=== PATIENT | female | born 1965 | race Caucasian/White ===

== ENCOUNTER 2020-08-28 11:15 | Emergency (ER) | payer BC, SELFPAY ==
[2020-08-28 11:15] VITALS: BP 124/79; PULSE 64; RESP 20; TEMP 36.7; O2SAT 100; BMI 21.9
[2020-08-28 11:40] VITALS: BP 124/79; PULSE 64; RESP 20; TEMP 36.7; O2SAT 100
--- NOTE | 2020-08-28 11:41 | HMH.EDUTC ---
[facility] [place] Clinical Impression: Encounter for laboratory testing for COVID-19 virus Disposition: Home, Self-Care Condition on Discharge: Good Instructions: DI for COVID-19 (Suspected or Confirmed ), Coronavirus Disease 2019, Preventing the Spread of Coronavirus Discharge Instructions Additional Instructions: *Monitor Temp, Over the counter Motrin or Tylenol as directed/as needed Tylenol every 4 hours and Motrin every 6 hours (as long as your family doctor has told you that you can take it) for fever or pain. and straight to ER if unable to lower temp less than 101.0 after medication given Follow up IMMEDIATELY for new or worsening symptoms or no Noticeable improvement over the next 48-72 hours. 911 for difficulty breathing or swallowing You were tested for today for COVID19 your test result should be back in the next 24-48 hours, you may call to the [facility] to see if your test results are back in the next 48 hours [phone] [facility] hours are 9am-9pm You was given a handout with instructions for Self Quarantine and Self isolation for while you wait on test results and what to do if they are positive If you are positive the Health Dept will be contacting you also Referrals: Rangel Mercedes [Primary Care Provider] - As needed Forms: Work/School Release Time of Disposition: 11:45 Medical Decision Making - Zeferino Inquiry Pt receiving controlled substance: No Zeferino was queried for this patient: No Vital Signs: 08/28/20 11:15 08/28/20 11:40 Temperature 98.1 F 98.1 F Temperature Source Oral Pulse Rate 64 Pulse Rate [Right Brachial] 64 Respiratory Rate 20 20 Blood Pressure 124/79 Blood Pressure [Right Arm] 124/79 Blood Pressure Mean [Right Arm] 94 Blood Pressure Source [Right Arm] Automatic Cuff Blood Pressure Position [Right Arm] Sitting 02 Sat by Pulse Oximetry 100 Oxygen Delivery Method Room Air Orders (Tests/Meds): ORDERS Category Date Time Status Covid-19 Nasal PCR ([facility]) Routine Lab 08/28/20 11:30 [place] [facility] [place] - General Stated complaint: wants covid test Time Seen by Provider: 08/28/20 11:41 Mode of Arrival: Ambulatory Source of Information: Patient Limitations: No Limitations Description of Symptoms (Recalled from Triage Doc. by RN): PT REQUESTING COVID TEST. DENIES SYMPTOMS OR EXPOSURE HEENT Symptoms (Recalled from RN notes): No Resp Symptoms (Recalled from RN notes): No Skin Symptoms (Recalled from RN notes): No MS Symptoms (Recalled from RN notes): No Functional Status (Recalled from RN notes): WNL - History of Present Illness Provider Complaint: Patient states that she is wanting to get tested for COVID State that her has been having COVID like symptoms and she wanted to get tested State that she is not having any symptoms yet but still was concerned - Worker's Comp Is this a Worker's Comp case?: No H History - Hepatitis A Screen Drug use history?: No High risk sexual behaviors?: No History of sexually transmitted infection?: No Currently employed?: No Childcare worker?: No Do you have indoor plumbing?: Yes Do you have electricity?: Yes Attestation statement:: This patient has been screened for Hepatitis A risk factors. I have reviewed the patient's past medical history: Yes ROS Obtained: Yes All systems reviewed & no additional complaints, Yes Systems reviewed as appropriate & no additional complaints - Constitutional Constitutional: Reports system reviewed and no additional complaints, except as docu, Denies body ache, Denies chills, Denies fever(s), Denies headache(s) - ENT Ears, Nose, Mouth, and Throat: Reports system reviewed and no additional complaints, except as docu, Denies sore throat - Cardiovascular Cardiovascular: Reports system reviewed and no additional complaints, except as docu - Respiratory Respiratory: Reports system reviewed and no additional complaints, except as docu - Gastrointestinal Gastrointestingal: Reports: syst
== END 2020-08-28 11:58 | disposition home or self-care (01) ==
PROVIDERS: Emergency Provider Nurse Practitioner; PCP Internal Medicine
DX: Z20.822 Contact with and (suspected) exposure to COVID-19 (principal)
CPT/HCPCS: 99202; G0463; U0003

== ENCOUNTER 2024-07-03 09:56 | Outpatient (CLI) | payer BC, SELFPAY ==
[2024-07-06 16:30] LABS: Pancreatic Elastase, Fecal 761 (>200)
== END 2024-07-03 23:59 | disposition home or self-care (01) ==
LOC: LAB 09:57
PROVIDERS: PCP Internal Medicine; Visit Provider Internal Medicine Gastroenterology
DX: R11.0 Nausea (principal); R14.0 Abdominal distension (gaseous); R19.5 Other fecal abnormalities
CPT/HCPCS: 82656

== ENCOUNTER 2024-07-23 07:34 | Outpatient (CLI) | payer BC, SELFPAY ==
--- NOTE | 2024-07-23 07:35 | CT_ITS ---
FINAL REPORT TECHNIQUE: Axial CT of the abdomen and pelvis, without and with IV contrast. This study was performed with techniques to keep radiation doses as low as reasonably achievable, (ALARA). Individualized dose reduction techniques using automated exposure control or adjustment of mA and/or kV according to the patient's size were employed. CLINICAL HISTORY: Nausea, abdominal pain and weight loss COMPARISON: None FINDINGS: Abdomen: Lung bases are clear. Multiple hepatic cysts are present. The spleen, pancreas and adrenal glands are unremarkable. Precontrast imaging shows no renal stone disease. Postcontrast imaging of the kidneys shows no mass or obstruction. No bowel obstruction or fluid collection is seen. Mild fecal impaction is noted diffusely in the colon. The mesenteric vessels appear unremarkable. Pelvis: The appendix is not visualized. Pelvic bowel loops are unremarkable. No fluid collection or adenopathy is seen. The uterus is retroverted. The bladder is normal in appearance. IMPRESSION: No acute findings. Reviewed, Interpreted and Dictated by Adriano Bhatt MD Transcribed by Alejandra Perez Authenticated and [facility]
[2024-07-23 08:02] LABS: Blood Urea Nitrogen 6 mg/dl (7-17); Estimated Glomerular Filt Rate 103 ml/min (>60); GFR (African American) 125 ML/MIN (>60)
[2024-07-23] MEDS: IOPAMIDOL-370 (76%);100ML BOTTLE 75 ML IV (08:32)
[2024-07-23] MEDS: SODIUM CHLORIDE 0.9% 10ML SYR (RAD ONLY) 10 ML IV (08:32)
== END 2024-07-23 23:59 | disposition home or self-care (01) ==
LOC: RAD 07:35
PROVIDERS: PCP Internal Medicine; Visit Provider Internal Medicine Gastroenterology
DX: R11.0 Nausea (principal); R10.9 Unspecified abdominal pain; R63.4 Abnormal weight loss; Z68.24 Body mass index [BMI] 24.0-24.9, adult
CPT/HCPCS: 36415; 74178; 82565; 84520; Q9967

== ENCOUNTER 2024-09-07 11:00 | Day surgery (SDC) | payer BC, SELFPAY ==
[2024-09-04 08:47] VITALS: BMI 25.0
[2024-09-07 11:42] VITALS: BP 126/77; PULSE 58; RESP 16; TEMP 36.6; O2SAT 100
--- NOTE | 2024-09-07 11:59 | EXP.ANES.CKL ---
[facility] Disclaimer: The information contained in this section may have been updated after the patient was seen, as this information can be updated by other users. Medical History (Updated 09/04/24 @ 08:37 by Judith Lynch RN) Normal colonoscopy Breast implant status Surgical History (Updated 09/04/24 @ 08:37 by Judith Lynch RN) Hx of tonsillectomy Hx of appendectomy Family History (Updated 09/04/24 @ 08:39 by Judith Lynch RN) Other Acute diverticulitis of intestine COPD (chronic obstructive pulmonary disease) History of colon resection Lymphoma Prostate cancer Social History (Updated 09/07/24 @ 11:34 by Cuca Mccracken RN) Smoking Status: Never smoker alcohol intake: never substance use type: denies use current occupational status: employed Travel in the last 8 weeks: Inside the [place] [facility] Anesthesia Checklist Patient Identification Patient Identification: Arm Band Structural Data Admitted From: Home Planned Operative Procedure/s: Colonoscopy Consent for Planned Operative Procedure(s) Verified: Yes Verified Documents: Surgical Consent and History and Physical NPO Status Verified Time NPO: 08:30 (finished prep) Additional verifications Anesthesia Reactions: No Airway Assessment Mallampati Score:: Class II C-Spine Mobility Assessed: Yes TMJ Mobility Assessed: Yes Dentition: Good Dentition Neurological Assessment Level of Consciousness: Awake, Alert and Appropriate Anesthesia Plan Anesthesia Risk discussed: Yes Anesthesia Plan: Verified ASA Class: I Anesthesia Type: MAC
[2024-09-07] MEDS: LACTATED RINGERS 1000ML 1,000 ML 50 ML IV (12:04)
--- NOTE | 2024-09-07 12:33 | EXP.HP ---
History of Present Illness *Admission Date: 09/07/24 *Reason for visit:: Frequent internal hemorrhoidal bleeding and prolapsing internal hemorrhoids *History of present illness: Mrs. Beltrán is a 59-year-old female who is here for sigmoidoscopy with possible hemorrhoid band ligation. She does have frequent hemorrhoidal bleeding and prolapsing internal hemorrhoids. The examination is deemed medically necessary for sigmoidoscopy with banding. The patient has been seen, interviewed and examined prior to the procedure by both myself and the anesthesia provider. [facility] Disclaimer: The information contained in this section may have been updated after the patient was seen, as this information can be updated by other users. Medical History (Updated 09/04/24 @ 08:37 by Judith Lynch RN) Normal colonoscopy Breast implant status Surgical History (Updated 09/04/24 @ 08:37 by Judiht Lynch RN) Hx of tonsillectomy Hx of appendectomy Family History (Updated 09/04/24 @ 08:39 by Judith Lynch RN) Other Acute diverticulitis of intestine COPD (chronic obstructive pulmonary disease) History of colon resection Lymphoma Prostate cancer Social History (Updated 09/07/24 @ 12:00 by Christos Holland CRNA) Smoking Status: Never smoker alcohol intake: never substance use type: denies use current occupational status: employed Travel in the last 8 weeks: Inside the [place] Have you lived/traveled outside US in past 30 days?: No Contact w/someone who lives/traveled outside US past 30 days?: No Exposure to someone with infectious disease in past 14 days?: No Do you have a fever (greater than 100.4 F or 38 C)?: No Have you tested positive for COVID-19: No Exposed to someone with COVID-19 in past 14 days?: No Do you have a sore throat?: No Do you have a cough?: No Do you have any weakness?: No Do you have any diarrhea?: No Are you experiencing any unusual bleeding?: No Do you have any muscle aches/pain?: No Do you have any abdominal pain?: No Are you experiencing loss of taste or smell?: No Review of Systems Review of Systems Review of systems (narrative): Negative *Cardiovascular Comments: Negative *Gastrointestinal Comments: Negative *Genitourinary Comments: Negative *Musculoskeletal Comments: Negative *Neurologic Comments: Negative Meds Home Medications and Allergies Home Medications ?Medication ?Instructions ?Recorded ?Confirmed ?Type multivitamin (Multiple Vitamins 1 tab PO DAILY 06/30/24 09/07/24 History tablet) psyllium husk (with sugar) 3 1 tbsp PO DAILY 06/30/24 09/07/24 History gram/12 gram oral powder (Konsyl (sugar)) segvlk-[id number]-snechkj 1 cap PO .With meals 30 days #90 07/21/24 09/07/24 Rx 36,000-114,000-180,000 unit caps capsule,delay rel (Creon) sodium,potassium,mag sulfates 17.5 See Rx Instructions PO .COMPLEX 08/27/24 09/07/24 Rx gram-3.13 gram-1.6 gram oral soln #354 mL (Suprep Bowel Prep Kit) estradiol 0.01% (0.1 mg/gram) See Rx Instructions .Route .COMPLEX 09/04/24 09/07/24 History vaginal cream New Prescriptions to Start Prescriptions: Allergies Allergy/AdvReac Type Severity Reaction Status Date / Time No Known Allergies Allergy Verified 09/07/24 11:34 Exam Data for Last 24 hours Vital signs and Labs for Last 24 Hours: Temp Pulse Resp BP Pulse Ox O2 Del Method 97.9 F 58 L 16 126/77 100 Room Air 09/07/24 11:42 09/07/24 11:42 09/07/24 11:42 09/07/24 11:42 09/07/24 11:42 09/07/24 11:42 I & O for Last 24 hours: Intake & Output 09/04/24 09/05/24 09/06/24 09/07/24 23:59 23:59 23:59 23:59 Weight 160 lb *Routine HEENT Exam Head: Present normocephalic Eye: Present EOMI and PERRL ENT: Present mucous membranes moist *Routine Neck Exam Neck: Present supple *Routine Respiratory Exam Respiratory: Present CTA bilaterally *Routine Cardiovascular Exam Cardiovascular: Present RRR *Routine Abdominal Exam Abdominal: Present soft and normoactive bowel sounds; Absent tenderness *Routine Rectal Exam Rectal:: deferred *Routine Genitalia Exam Genitalia:: deferred *Routine Extremities Exam Extremities: Absent cyanosis, clubbing or edema *Routine Skin Exam Skin: Present warm; Absent rash *Routine Neurological Exam Neurological: Present alert and oriented X3 Assessment and Plan *Assessment and plan (1) Bleeding internal hemorrhoids: Status: Acute Category: Medical Code(s): K64.8 - Other hemorrhoids (2) Prolapsed internal hemorrhoids: Status: Acute Category: Medical Code(s): K64.8 - Other hemorrhoids Plan A/P: 1. Bleeding and prolapsing internal hemorrhoids is the preprocedural diagnosis. The patient will be anesthetized/sedated using MAC sedation. The patient has been seen and examined. Cardiac and lung assessment prior to the examination is stable. Proceed with planned flexible sigmoidoscopy with possible hemorrhoid band ligation
[2024-09-07 12:45] VITALS: O2SAT 100
--- NOTE | 2024-09-07 12:50 | HMH.PROCNOTE ---
[facility] Procedure Note Date: 09/07/24 Time: 13:03 Procedure Note:: Flexible Sigmoidoscopy Procedure Report: Sigmoidoscopy with hemorrhoid band ligation Endoscopist: Guero Becker II, MD Referring physician: Felice Mercedes MD Date of Procedure: September 07, 2024 Equipment: Olympus 180 upper endoscope Sedation: MAC sedation Indication: Mrs. Prieto is a 59-year-old female who is here for diagnostic/therapeutic sigmoidoscopy. She also gets some abdominal pain occasionally in the left lower quadrant and epigastrium. The patient reports some gassiness and bloating. She reports loose bowel movements and takes Konsyl/psyllium daily. She has had more frequent hemorrhoidal bleeding which is bright red blood and hemorrhoid prolapse. She has had several bouts since December 2023. She had a colonoscopy with me in June 2021 that showed pandiverticulosis with evidence of resolved sigmoid diverticulitis. She had grade 1-2 internal hemorrhoids. The patient did have a CAT scan of the abdomen and pelvis in March 2021 that showed no acute intra-abdominal process with some colonic diverticulosis and small liver cyst. At the time her gallbladder and pancreas were normal. She did see Dr. Neeru Rivera?gynecology. She reports no family history of pancreatic cancer. She does eat primarily meats and does state that green vegetables especially because her symptoms (i.e. spinach, broccoli, celery, etc.). Procedure: Prior to the procedure, a history and physical exam was performed, and patient's medications and allergies were reviewed. The risks, benefits and alternatives of the sedation and procedure were discussed with the patient. All questions were answered and informed consent was obtained. The patient was brought to the procedure room. Patient identification and proposed procedure were verified by the physician and the nurse. The patient was placed in a left lateral decubitus position and the scope was passed under direct vision. Throughout the procedure, the patient's blood pressure, pulse, and oxygen saturations were monitored continuously. The colonoscopy was accomplished without difficulty. The patient tolerated the procedure well. Findings: On digital rectal examination there was normal rectal tone. There were no external hemorrhoids. The scope was then inserted through the anal canal into the rectum and advanced to 50 cm. There was evidence of sigmoid diverticulosis. Within the rectum, the endoscope was retroflexed and there were grade 2 internal hemorrhoids with some evidence of rectal and hemorrhoidal prolapse. 3 columns of internal hemorrhoids were banded using 3 bands with excellent ligation effect. Impression: 1. Grade 2 internal hemorrhoids with both hemorrhoid and rectal prolapse status post band ligation x 3 2. Sigmoid diverticulosis Plan: I would resume psyllium Konsyl daily. I will discuss the findings with the patient and family.
[2024-09-07 13:08] VITALS: BP 86/55; PULSE 66; RESP 18; TEMP 36.4; O2SAT 96
[2024-09-07] MEDS: HYDROCODONE/APAP 5/325 MG TABLET 1 TAB PO (13:16)
[2024-09-07 13:18] VITALS: BP 114/71; PULSE 79; RESP 18; O2SAT 97
[2024-09-07 13:28] VITALS: BP 121/73; PULSE 64; RESP 18; O2SAT 98
[2024-09-07 14:00] VITALS: BP 120/74; PULSE 63; RESP 18; O2SAT 97
== END 2024-09-07 14:00 | disposition home or self-care (01) ==
PROVIDERS: PCP Internal Medicine; Visit Provider Internal Medicine Gastroenterology
PROC: 0DJD8ZZ Inspection of Lower Intestinal Tract, Via Natural or Artificial Opening Endoscopic (ICD-10-PCS; CPT 45330; principal; 2024-09-07 12:30)
DX: K64.8 Other hemorrhoids (principal); K59.4 Anal spasm; Z98.890 Other specified postprocedural states; K57.30 Diverticulosis of large intestine without perforation or abscess without bleeding; K64.1 Second degree hemorrhoids
CPT/HCPCS: 45350; C1889; J7120

== ENCOUNTER 2025-01-13 13:59 | Emergency (ER) | payer BC, SELFPAY ==
--- NOTE | 2025-01-13 14:11 | XR_ITS ---
FINAL REPORT TECHNIQUE: Chest PA & Lateral CLINICAL HISTORY: rib pain COMPARISON: None FINDINGS: 2 views of the chest were performed. The heart size is normal. The mediastinum is within normal limits. There is no acute cardiopulmonary process. There are no pleural effusions. There is no pneumothorax. The bony thorax appears intact. IMPRESSION: No acute cardiopulmonary process. Reviewed, Interpreted and Dictated by Lucian Holder MD Transcribed by Alejandra Perez Authenticated and [facility]
--- OUTSIDE RECORDS SUMMARY | 2025-01-13 14:12 | XMS_ITS | Continuity of Care Document ---
Author Organization [facility] Address [address] [place] [address] Care Team Providers Care Flower Maker Name Role Phone WILLOW RAMOS Primary Care Provider Assessment No assessment recorded. Plan of Treatment Reminders Order Date Submit Date Provider Last Modified By Organization Details Last Modified Time Details Appointments FOLLOW UP [facility] 2025 09:10A M JULIET DESAI MD Not available Not available Not available Lab None recorded. Referral None recorded. Procedures None recorded. Surgeries None recorded. Imaging None recorded. Medication Orders prednison e 10 mg tablet [address] [facility] [address] [place] [address], [address] [place] [address], [id number], 12/21/2024 15:11:46 triamcino lone acetonide 0.1 % topical cream [address] [facility] [address] [place] [address] RX, [address] [place] [address], [id number], 12/21/2024 15:11:46 Patient TargetsNo targets recorded. Patient InstructionsNo instructions recorded. Reason for Referral None Reported. Medical Equipment None Reported. Allergies No known drug allergies Medications Name Sig Start Date Stop Date Status Note LastModified by Organization Details LastModified Time prednisone 10 mg tablet Take 4 tablets PO QAM x4 days, 3 tablets PO QAM x4 days, 2 tablets PO QAM x4 days, 1 tablet PO QAM x4 days 2024 active Not Available Not Available Not Avai lable ketoconazole 2 % shampoo APPLY TO THE AFFECTED AREA(S), LATHER, LEAVE IN PLACE FOR 5 MINUTES, AND THEN RINSE OFF WITH WATER BY TOPICAL ROUTE ONCE DAILY 2024 active Not Available Not Available Not Avai lable triamcinolone acetonide 0.1 % topical cream Apply to the affected area BID x2 weeks, then 1-2 times weekly. Not for face, armpits, or groin. 2024 active Not Available Not Available Not Avai lable Vitals None Recorded Social History None recorded. Functional Status None recorded. Mental Status None recorded. Family History Nothing Reported. Medical History No medical history recorded. Gynecological HistoryNo gynecological history recorded. Obstetrics History GPAL:G 0 P 0 0 0 0 Past Encounters Encounter ID Performer Location Encounter Start Date Encounter Closed Date Diagnosis/Indication Diagnosis SNOMED-CT Code Diagnosis ICD10 Code Diagnosis Note [id number] SANTY PENA PA-C [address] [address] 12/21/2024 13:08:39 12/21/2024 15:13:24 Allergic contact dermatitis caused by plant material [id number] L23.7 Pt notes possible exposure to poison hesham.Pt taking rx methylpred nisolone and cephalexin 500 TID x7 days prescribed by PCP. She notes she just finished the few days of steroid and didn't notice much change. Rec finish out Keflex and will send longer prednisone taper.Will send TAC 0.1% ointmentWi ll send prednisone taper Health Concerns Section Related Observation LastModified by Organization Detai ls LastModified Time None Recorded Concern Status LastModified by Organization Details LastModified Time None Recorded Payers Encounter Date Sequence Insurance Name Policy Number Policy Rebolledo Covered Member ID Rebolledo Member ID Guarantor Name 12/21/2024 1 [facility] (PPO) [id number] Bravo Prieto [id number] Bravo Prieto Notes Date Note Type Note Provider Name and Address Organization Details Recorded Time 12/21/2024 text/html Rash Location(s): arms, groin, legs General duration: ~daysstarted 12/13 Predominant symptom:itching Prior treatment(s): methylprednisol one, cephalexin, calamine lotion Recently, the rash seems to be:minimally changed SANTY PENA PA-C [address] [place], [address], [facility] 12/29/2024 10:22:16 OBGyn Episode No OBEpisode recorded.
--- OUTSIDE RECORDS SUMMARY | 2025-01-13 14:12 | XMS_ITS | Clinical Summary ---
Author Organization [facility] Address [address] [place] [id number] Phone [email or web address] Care Team Providers Care Parallel Computing Software Engineer Name Role Phone Provider, No Primary Care Provider Unavailabl e Allergies No known active allergies Medications Nidia-D Allergy & Congestion 180-240 MG per 24 hr tablet Take 1 tablet by mouth 1 (one) time each day. 01/20/2021 Active ibuprofen (MOTRIN) 800 MG tablet 03/05/2022 Active acetaminophen (TYLENOL 8 HOUR) 650 MG 8 hr tablet Take 650 mg by mouth every 8 (eight) hours if needed for mild pain. Do not crush, chew, or split. Active Active Problems Problem Noted Date Diagnosed Date Open wound of finger 11/16/2011 Overview (01/01/2018): Immunizations Immunization Administration Dates Next Due Covid-19 (Modern[employer] [place], 12yrs+) (CVX-207) 2020,10/04/2020 Social History Tobacco Use Types Packs/Day Years Used Date Smoking Tobacco: Never Smokeless Tobacco: Never Intimate Partner Violence Answer Date R ecorded Insults You Not on file 11/16/2020 Threatens You Not on file 11/16/2020 Screams at You Not on file 11/16/2020 Physically Hurt Not on file 11/16/2020 Intimate Partner Violence Score Not on file 11/16/2020 Depression Answer Date Recorded PHQ Total Score 0 09/11/2024 Stress Answer Date Recorded Stress in your Life Not on file 06/08/2024 Dealing with Stress 3 06/08/2024 Comments Unknown Sex and Gender Information Value Date Recorded Sex Assigned at Not on file Legal Sex Female 10:29 AM CDT Gender Identity Not on file Sexual Orientation Not on file Last Filed Vital Signs Vital Sign Reading Time Taken Comments Blood Pressure 142/83 09/11/2024 9:30 AM EST Pulse 65 09/11/2024 9:30 AM EST Temperature 36.8 C (98.2 F) 07/11/2023 3:04 PM EST Respiratory Rate 16 09/11/2024 9:30 AM EST Oxygen Saturation 98% 09/11/2024 9:30 AM EST Inhaled Oxygen Concentration - - Weight 71.2 kg (157 lb) 02/13/2023 5:38 PM EDT Height 170.2 cm (5' 7 ) 02/13/2023 5:38 PM EDT Body Mass Index 24.59 02/13/2023 5:38 PM EDT Plan of Treatment Health Maintenance Due Date Last Done Comments Dental Cleaning/Exam 1967 HIV Screening 1967 Hepatitis C Screening 1967 Cervical Cancer Screening 1983 Annual Preventive Exam 1985 Hep B Infection Screening - Triple Screen 1985 Hepatitis B Immunization (1 of 3 - 19+ 3-dose series) 1986 Tetanus Diphtheria and Pertussis Immunization (1 - Tdap) 1986 Colorectal Cancer Screening 1997 Covid-19 Immunization ( season) 2024 03/10/2022, 06/16/2021, 11/01/2020, Additional history exists Influenza Immunization (Season Ended) 2025 06/02/2022, 05/21/2020 Breast Cancer Screening 09/30/2026 09/30/19, 08/19/2023, 08/17/2022, Additional history exists Zoster Immunization Completed 08/02/2022, HIB Immunization Aged Out No longer e ligible based on patient's age to complete this topic HPV Immunization Aged Out No longer e ligible based on patient's age to complete this topic Hepatitis A Immunization Aged Out No longer eligible based on patient's age to complete this topic Pneumococcal: Ped (0 to 5 Yrs) and At-Risk Member (6 to 64 Yrs) Aged Out No longer eligible based on patient's age to complete this topic Polio Immunization Aged Out No longer eligible based on patient's age to complete this topic Insurance OPT OUT NO COPAY NB Care Teams Parallel Computing Software Engineer Relationship Specialty Start Date End Date Provider, BAILEE Franco [id number] PCP - General Hot Header Operator 01/30/21
[2025-01-13 14:18] VITALS: BP 166/105; PULSE 97; RESP 17; TEMP 37; O2SAT 99; BMI 22.2
--- NOTE | 2025-01-13 14:19 | ECG_ITS ---
APPROVED REPORT Exam: Resting ECG HR:77 bpm ECG Measurements Heart Rate 77 AXES AK 142 P 72 QRSd 92 QRS 14 QT 393 T 66 QTc 425 Conclusion SINUS RHYTHM LOW QRS VOLTAGE IN PRECORDIAL LEADS [QRS DEFLECTION < 1.0 mV IN CHEST LEADS] BORDERLINE ECG UNCONFIRMED REPORT Electronically signed by : Rito Ren MD 01/14/2025 08:43:19
--- NOTE | 2025-01-13 14:22 | ED_ITS ---
Discharge Plan Disposition Patient Disposition: Home, Self-Care Prescriptions Prescriptions: New epinephrine [EpiPen 2-Marlon] 0.3 mg/0.3 mL auto-injector 0.3 mg IM Q15M PRN (Reason: anaphylaxis) Qty: 1 0RF Rx Instructions: for 3 doses fexofenadine 30 mg tablet,disintegrating 180 mg PO BID Qty: 360 0RF famotidine 40 mg tablet 40 mg PO DAILY Qty: 30 0RF No Action multivitamin [Multiple Vitamins] Tablet 1 tab PO DAILY Konsyl (sugar) 3 gram/12 gram powder 1 tbsp PO DAILY Creon 36,000-114,000- 180,000 unit capsule,delayed release(DR/EC) 1 cap PO .With meals 30 Days Qty: 90 2RF Rx Instructions: administer with meals and/or snacks sodium,potassium,mag sulfates [Suprep Bowel Prep Kit] 17.5-3.13-1.6 gram recon soln See Rx Instructions PO .COMPLEX Qty: 354 0RF Rx Instructions: DILUTE; drink full amount early evening before AND next morning at least 4-5 hr before procedure; follow w 960 mL water PO estradiol 0.01 % (0.1 mg/gram) cream See Rx Instructions .ROUTE .COMPLEX Patient Comments: INSERT 1 GRAM VAGINALLY THREE TIMES A WEEK ON SATURDAY, SATURDAY AND SATURDAY Rx Instructions: place cream in vaginally once weekly hydrocodone-acetaminophen 5-325 mg tablet 1 tab PO Q8H PRN (Reason: Anorectal spasm) Qty: 10 0RF Rx Instructions: Please take 1 tablet p.o. every 8 hours anorectal pain/spasm after hemorrhoid banding Referrals Follow up/Referrals: veterinary technician instructor [Other] - See instructions Brianna Pitts MD [Referring, Otolaryngology (ENT)] - See instructions Provider,Referral, [Referring, Medical] - See instructions Activity Restrictions/Add. Instructions Additional Instructions/Restrictions: Increase fluids and rest. Take allergy medicine, famotidine and Benadryl as directed. Also please make appointment with Dr. Hankins she is an veterinary technician instructor and can help you with all the allergy problems you are having. I also prescribed an EpiPen just in case you start to feel throat closing and problems breathing you can use that immediately. Return to the ER for any worsening symptoms or problems. Clinical Impressions Clinical Impression: Allergic reaction, Angioedema Instructions Patient Instructions: DI for General Allergic Reactions Print Language Print Language: Lithuanian Discharge ED Provider: Laura Spencer General Adult HPI <Elaine Krause (ED), [employer] - Last Filed: 01/13/25 16:05> General Chief complaint: Allergic Reaction Stated complaint: Allergic Reaction Time Seen by Provider: 01/13/25 14:11 History of Present Illness HPI narrative: This is a 59-year-old female who presents to the ED today for complaint of allergic reaction. Her bottom lip is swollen. She has had many symptoms that have come and gone over the past couple weeks. The lip swelling has been going on for couple days. Patient saw Dr. Clancy on 12/11/2024 for poison hesham. She was given steroids and steroid cream and a shot. She then saw her immigration guard who gave more steroids. She just stopped them last . She says that she has been getting hives that have been diffuse on her body. She says they only last about a day and then they will resolve. She states that 2 days ago she had a knot in her throat and by the evening her throat was swollen, nose was swollen and she felt like she was unable to breathe. She says she took Mucinex and tried to calm herself down. She says she improved. She says she got up and went to work this morning but she had a sore throat. She says she thought she might of a sinus infection but she went to work today. She says her ear started swelling the left side of her face started swelling and her lip started to swell. She says now at this point her ear swelling is gone her left face is no longer swollen but her lip continues to swell but it is improved since this morning. She says that she started to feel shortness of breath at work but she feels like this was more anxiousness than anything. She has no shortness of breath now. She says she came to the ER because of her throat feeling like it closed up. This made her extremely nervous so she wanted to come in and be evaluated. She tells me that she has no idea what she is allergic to. She says that she has had no new medications. No new lotions, soaps or detergents. She tells me that she is not on no other medications that are new. Other than the steroids over the last month she has had no other new medications but she had stopped those on . No fevers or chills. No nausea, vomiting or diarrhea. No other symptoms. Related Data Home Medications ?Medication ?Instructions ?Recorded ?Confirmed multivitamin (Multiple Vitamins 1 tab PO DAILY 4 09/07/24 tablet) psyllium husk (with sugar) 3 1 tbsp PO DAILY 06/30/24 09/07/24 gram/12 gram oral powder (Konsyl (sugar)) estradiol 0.01% (0.1 mg/gram) See Rx Instructions .Rou te .COMPLEX 09/04/24 09/07/24 vaginal cream Previous Rx's ?Medication ?Instructions ?Recorded jipjei-[id number] 1 cap PO .With meals 30 days #90 07/21/24 36,000-114,000-180,000 unit caps capsule,delay rel (Creon) sodium,potassium,mag sulfates 17.5 See Rx Instructions PO .COMPLEX 08/27/24 gram-3.13 gram-1.6 gram oral soln #354 mL (Suprep Bowel Prep Kit) hydrocodone 5 mg-acetaminophen 325 1 tab PO Q8H PRN An orectal spasm 09/07/24 mg tablet #10 tabs epinephrine 0.3 mg/0.3 mL 0.3 mg (0.3 mL) IM Q15M PRN 01/13/25 injection, auto-injector (EpiPen anaphylaxis #1 ea 2-Marlon) famotidine 40 mg tablet 40 mg PO DAILY #30 tabs 01/03 08/29 fexofenadine 30 mg disintegrating 180 mg (6 x 30 mg) P O BID #360 tabs 01/13/25 tablet Allergies Allergy/AdvReac Type Severity Reaction Status Date / Time No Known Allergies Allergy Verified 09/07/24 11:34 [facility] <Elaine Krause (ED), [employer] - Last Filed: 01/13/25 16:05> [facility] Disclaimer: The information contained in this section may have been updated after the patient was seen, as this information can be updated by other users. Medical History (Updated 01/13/25 @ 15:56 by Elaine Krause (ED), [employer]) Normal colonoscopy Breast implant status Surgical History (Updated 09/07/24 @ 13:56 by Guero Becker II, MD) Hx of tonsillectomy Hx of appendectomy Family History (Updated 09/04/24 @ 08:39 by Judith Lynch RN) Other Acute diverticulitis of intestine COPD (chronic obstructive pulmonary disease) History of colon resection Lymphoma Prostate cancer Social History (Updated 09/07/24 @ 12:00 by Christos Holland CRNA) Smoking Status: Never smoker alcohol intake: never substance use type: denies use current occupational status: employed Travel in the last 8 weeks?: Inside the [place] Have you lived/traveled outside [place] in past 30 days?: No Contact w/someone who lives/traveled outside US past 30 days?: No Exposure to someone with infectious disease in past 14 days?: No Do you have a fever (greater than 100.4 F or 38 C)?: No Have you tested positive for COVID-19?: No Exposed to someone with COVID-19 in past 14 days?: No Do you have a sore throat?: No Do you have a cough?: No Do you have any weakness?: No Do you have any diarrhea?: No Are you experiencing any unusual bleeding?: No Do you have any muscle aches/pain?: No Do you have any abdominal pain?: No Are you experiencing loss of taste or smell?: No <Elaine Krause (ED), [employer] - Last Filed: 01/13/25 16:05> ROS Obtained: Yes Systems reviewed as appropriate & no additional complaints except as documented Constitutional Constitutional: Reports as per HPI Physical Exam <Elaine Krause (ED), [employer] - Last Filed: 01/13/25 16:05> General General appearance: alert and anxious Head Head exam: normocephalic Eye Eye exam: Present PERRL and EOMI ENT ENT exam: Present mucous membranes moist and other (Lower lip swollen) Neck Neck exam: Present full ROM and trachea midline Respiratory Respiratory exam: Present normal lung sounds bilaterally Cardiovascular Cardiovascular exam: Present regular rate, normal rhythm, normal heart sounds, +S1 and +S2 Abdominal Exam Abdominal exam: Present soft and normal bowel sounds Extremities Exam Extremities exam: Present normal inspection, full ROM and normal capillary refill Neurological Exam Neurological exam: Present alert, oriented X3 and normal gait Skin Skin exam: Present warm, dry and intact Medical Decision Making <Elaine Krause (ED), [employer] - Last Filed: 01/13/25 16:05> Medical Records Screening: Per USPSTF and CDC recommendations, given the prevalence of disease in our region, it is our hospital?s policy to screen for HIV and viral Hepatitis for all patients aged 18 and over and those with ongoing risk factors. Zeferino Inquiry Pt receiving controlled substance: No Zeferino was queried for this patient: No Vital Signs: 01/13/25 14:18 01/13/25 14:53 01/13/25 14:54 Temperature 98.6 F Temperature Source Oral Pulse Rate 75 68 Pulse Rate [Right] 97 H Respiratory Rate 17 16 9 L Blood Pressure 139/92 H 139/92 H Blood Pressure [Right Arm] 166/105 H Blood Pressure Mean [Right Arm] 125 02 Sat by Pulse Oximetry 99 100 100 Oxygen Delivery Method Room Air Room Air 01/13/25 15:00 01/13/25 15:30 01/13/25 16:12 Temperature 98.6 F Temperature Source Pulse Rate 75 64 84 Pulse Rate [Right] Respiratory Rate 18 15 16 Blood Pressure 152/100 H 141/85 H 140/85 Blood Pressure [Right Arm] Blood Pressure Mean [Right Arm] 02 Sat by Pulse Oximetry 99 100 Oxygen Delivery Method Room Air Lab Data Lab Results 01/13/25 14:08: WBC 5.4, RBC 4.42, Hgb 13.4, Hct 41.0, MCV 92.8, MCH 30.3, MCHC 32.7, RDW 13.2, Plt Count 269, MPV 9.5, Neut % (Auto) 55.9, Lymph % (Auto) 32.1, Fannin % (Auto) 9.9 H, Eos % (Auto) 1.5, Baso % (Auto) 0.4, Neut # (Auto) 3.0, Lymph # (Auto) 1.7, Fannin # (Auto) 0.5, Eos # (Auto) 0.1, Baso # (Auto) 0.0, S odium 134 L, Potassium 4.0, Chloride 102, Carbon Dioxide 28, Anion Gap 8.0, BUN 11, Creatinine 0.70, Estimated Creat Clear 90, Estimated GFR 86, Est GFR ( Amer) 104, Glucose 91, Calcium 9.3, Magnesium 2.0, Total Bilirubin 0.8, AST 37 H, ALT 21, Alkaline Phosphatase 69, Total Protein 7.6, Albumin 4.8, Globulin 2.8, Albumin/Globulin Ratio 1.7 01/13/25 14:08 01/13/25 14:08 Orders (Tests/Meds): ED MEDICATIONS Discontinued Medications Generic Name Dose Route Start Last Admin Trade Name Freq PRN Reason Stop Dose Admin Diphenhydramine HCl 25 mg 01/13/25 14:11 01/13/25 14:33 Diphenhydramine 50mg/Ml Vial IV 01/13/25 14:12 25 mg ONCE ONE Administration Famotidine 20 mg 01/13/25 14:11 01/13/25 14:33 Famotidine 20mg/2ml Vial IV 01/13/25 14:12 20 mg ONCE ONE Administration Methylprednisolone Sodium Succinate 125 mg 01/13/25 14:11 01/13/25 14:33 Methylprednisolone Sod Succ 125mg Vial IV 01/13/25 14:12 125 mg ONCE ONE Administration Sodium Chloride 8 ml 01/13/25 14:11 01/13/25 14:33 Sodium Chloride 0.9% 10ml Vial IV 02/12/25 14:10 8 ml NEEDED PRN Administration dilute pepcid ORDERS Category Date Time Status Chest XR 2 view (NOT portable) [XR chest 2V] Stat Exams 01/13/25 14:11 Completed CBC [Complete Blood Count Auto Diff] Stat Lab 01/13/25 14:08 Completed Comprehensive Metabolic Panel Stat Lab 01/13/25 14:08 Completed Magnesium Stat Lab 01/13/25 14:08 Completed HEART Score History (anamnesis): Slightly suspicious ECG: Normal Age: 45-65 years Risk factors: 1-2 risk factors Troponin: </= normal limit HEART Score: 2 Medical Decision Narrative: patient is a 59-year-old female presenting to the emergency department for evaluation of swollen lower lip, possible allergic reaction. Patient is hemodynamically stable and nontoxic-appearing upon arrival, afebrile. Differential diagnosis includes allergic reaction, angioedema, among others. Workup will be conducted with hematologic labs, specific imaging. Initial inventions include famotidine, Benadryl and Solu-Medrol. Initial workup reviewed by me labs were essentially unremarkable. Imaging informally interpreted by me and remarkable for nothing acute. Formal imaging read remarkable for:] Upon repeat evaluation patient's pain is improved, appears better perfused. Discussed with Dr. Spencer about her symptoms and we both agreed to do not do steroids since she just got off of them on but we are going to prescribe allergy med, EpiPen just in case and have her follow-up with an veterinary technician instructor. <Laura Spencer, DO - Last Filed: 01/13/25 17:51> Vital Signs: 01/13/25 14:18 01/13/25 14:53 01/13/25 14:54 Temperature 98.6 F Temperature Source Oral Pulse Rate 75 68 Pulse Rate [Right] 97 H Respiratory Rate 17 16 9 L Blood Pressure 139/92 H 139/92 H Blood Pressure [Right Arm] 166/105 H Blood Pressure Mean [Right Arm] 125 02 Sat by Pulse Oximetry 99 100 100 Oxygen Delivery Method Room Air Room Air 01/13/25 15:00 01/13/25 15:30 01/13/25 16:12 Temperature 98.6 F Temperature Source Pulse Rate 75 64 84 Pulse Rate [Right] Respiratory Rate 18 15 16 Blood Pressure 152/100 H 141/85 H 140/85 Blood Pressure [Right Arm] Blood Pressure Mean [Right Arm] 02 Sat by Pulse Oximetry 99 100 Oxygen Delivery Method Room Air Lab Data Lab Results 01/13/25 14:08: WBC 5.4, RBC 4.42, Hgb 13.4, Hct 41.0, MCV 92.8, MCH 30.3, MCHC 32.7, RDW 13.2, Plt Count 269, MPV 9.5, Neut % (Auto) 55.9, Lymph % (Auto) 32.1, Fannin % (Auto) 9.9 H, Eos % (Auto) 1.5, Baso % (Auto) 0.4, Neut # (Auto) 3.0, Lymph # (Auto) 1.7, Fannin # (Auto) 0.5, Eos # (Auto) 0.1, Baso # (Auto) 0.0, S odium 134 L, Potassium 4.0, Chloride 102, Carbon Dioxide 28, Anion Gap 8.0, BUN 11, Creatinine 0.70, Estimated Creat Clear 90, Estimated GFR 86, Est GFR ( Amer) 104, Glucose 91, Calcium 9.3, Magnesium 2.0, Total Bilirubin 0.8, AST 37 H, ALT 21, Alkaline Phosphatase 69, Total Protein 7.6, Albumin 4.8, Globulin 2.8, Albumin/Globulin Ratio 1.7 Orders (Tests/Meds): ED MEDICATIONS Discontinued Medications Generic Name Dose Route Start Last Admin Trade Name Uvaldoq PRN Reason Stop Dose Admin Diphenhydramine HCl 25 mg 01/13/25 14:11 01/13/25 14:33 Diphenhydramine 50mg/Ml Vial IV 01/13/25 14:12 25 mg ONCE ONE Administration Famotidine 20 mg 01/13/25 14:11 01/13/25 14:33 Famotidine 20mg/2ml Vial IV 01/13/25 14:12 20 mg ONCE ONE Administration Methylprednisolone Sodium Succinate 125 mg 01/13/25 14:11 01/13/25 14:33 Methylprednisolone Sod Succ 125mg Vial IV 01/13/25 14:12 125 mg ONCE ONE Administration Sodium Chloride 8 ml 01/13/25 14:11 01/13/25 14:33 Sodium Chloride 0.9% 10ml Vial IV 02/12/25 14:10 8 ml NEEDED PRN Administration dilute pepcid ORDERS Category Date Time Status Chest XR 2 view (NOT portable) [XR chest 2V] Stat Exams 01/13/25 14:11 Completed CBC [Complete Blood Count Auto Diff] Stat Lab 01/13/25 14:08 Completed Comprehensive Metabolic Panel Stat Lab 01/13/25 14:08 Completed Magnesium Stat Lab 01/13/25 14:08 Completed HEART Score HEART Score: 2 Medical Decision Narrative: patient is a 59-year-old female presenting to the emergency department for evaluation of swollen lower lip, possible allergic reaction. Patient is hemodynamically stable and nontoxic-appearing upon arrival, afebrile. Differential diagnosis includes allergic reaction, angioedema, among others. Workup will be conducted with hematologic labs, specific imaging. Initial inventions include famotidine, Benadryl and Solu-Medrol. Initial workup reviewed by me labs were essentially unremarkable. Imaging informally interpreted by me and remarkable for nothing acute. Upon repeat evaluation patient's pain is improved, appears better perfused. Discussed with Dr. Spencer about her symptoms and we both agreed to do not do steroids since she just got off of them on but we are going to prescribe allergy med, EpiPen just in case and have her follow-up with an veterinary technician instructor. DO Tj: I was consulted by the EMERITA, and we discussed the complexity of the problems being addressed. I approved the treatment and management plan for this patient's care in the emergency department, thus performing a substantive portion of the medical decision making. Laura Spencer DO Critical Care <Elaine Krause (ED), [employer] - Last Filed: 01/13/25 16:05> Critical Care Time Critical Care Time: No
[2025-01-13 14:28] LABS: Basophils % 0.4 % (0.1-2.0); Eosinophils # 0.1 Kmm3 (0.0-0.4); Eosinophils % 1.5 % (0.1-12.0); Hemoglobin 13.4 g/dL (12.2-16.2); Immature Granulocytes # 0.01 10^3uL; Immature Granulocytes % 0.2 %; Lymphocytes # 1.7 K/mm3 (0.7-4.5); Lymphocytes % 32.1 % (10-50); Mean Corpuscular HGB Conc 32.7 g/dL (31.8-35.4); Mean Corpuscular Hemoglobin 30.3 pg (27.0-31.2); Mean Corpuscular Volume 92.8 fl (81-99); Mean Platelet Volume 9.5 fl (7.4-10.4); Monocytes # 0.5 K/mm3 (0.1-1.0); Monocytes % 9.9 % (1.7-9.3); Neutrophils % 55.9 % (37.0-80.0); Nucleated Red Blood Cells # 0 10^3/uL; Nucleated Red Blood Cells % 0 %; Platelet Count 269 K/mm3 (142-424); Red Blood Count 4.42 M/mm3 (4.20-5.40); Red Cell Distribution Width 13.2 % (11.5-17.5); Red Cell Distribution Width-SD 45.2 fL; White Blood Count 5.4 K/mm3 (4.8-10.8)
[2025-01-13] MEDS: SODIUM CHLORIDE 0.9% 10ML VIAL 8 ML IV (14:33)
[2025-01-13] MEDS: diphenhydrAMINE 50MG/ML VIAL 25 MG IV (14:33)
[2025-01-13] MEDS: FAMOTIDINE 20MG/2ML VIAL 20 MG IV (14:33)
[2025-01-13] MEDS: METHYLPREDNISOLONE SOD SUCC 125MG VIAL 125 MG IV (14:33)
[2025-01-13 14:35] LABS: Chloride 102 mmol/L (98-107)
[2025-01-13 14:36] LABS: Albumin Level 4.8 g/dl (3.5-5.0); Sodium 134 mmol/L (136-145)
[2025-01-13 14:38] LABS: Alanine Aminotransferase 21 U/L (12-78); Albumin/Globulin Ratio 1.7 (1.1-1.8); Alkaline Phosphatase 69 U/L (38-126); Aspartate Amino Transferase 37 U/L (14-36); Bilirubin,Total 0.8 mg/dl (0.2-1.3); Blood Urea Nitrogen 11 mg/dl (7-17); Carbon Dioxide 28 mmol/L (22.0-30.0); Creatinine Clearance Estimated 90 mL/min (50-200); Estimated Glomerular Filt Rate 86 ml/min (>60); GFR (African American) 104 ML/MIN (>60); Globulin 2.8 g/dL (1.3-3.2); Total Protein,Serum 7.6 g/dl (6.3-8.2)
[2025-01-13 14:39] LABS: Calcium 9.3 mg/dl (8.4-10.2); Glucose 91 mg/dl (74-100)
[2025-01-13 14:53] VITALS: BP 139/92; PULSE 75; RESP 16; O2SAT 100
[2025-01-13 14:54] VITALS: BP 139/92; PULSE 68; RESP 9; O2SAT 100
[2025-01-13 15:00] VITALS: BP 152/100; PULSE 75; RESP 18; O2SAT 99
--- NOTE | 2025-01-13 15:01 | PC.NURSE ---
Pt has had breast implants since 2013.
[2025-01-13 15:30] VITALS: BP 141/85; PULSE 64; RESP 15; O2SAT 100
[2025-01-13 16:12] VITALS: BP 140/85; PULSE 84; RESP 16; TEMP 37; O2SAT 99
== END 2025-01-13 16:13 | disposition home or self-care (01) ==
PROVIDERS: Nurse Practitioner; Emergency Provider Emergency Medicine; PCP Internal Medicine
DX: T78.3XXA Angioneurotic edema, initial encounter (principal); T78.40XA Allergy, unspecified, initial encounter
CPT/HCPCS: 71046; 80053; 83735; 85025; 93005; 96374; 96375; 99284; J1200; J2919

== ENCOUNTER 2025-05-20 04:05 | Emergency (ER) | payer BC, SELFPAY ==
[2025-05-20] MEDS: METHYLPREDNISOLONE SOD SUCC 125MG VIAL 125 MG IV (04:18)
[2025-05-20] MEDS: FAMOTIDINE 20MG/2ML VIAL 20 MG IV (04:19)
[2025-05-20 04:30] VITALS: BP 131/85; PULSE 62; O2SAT 97
[2025-05-20 04:33] VITALS: BP 165/94; PULSE 74; RESP 16; TEMP 36.7; O2SAT 100; BMI 21.7
[2025-05-20 05:00] VITALS: BP 131/75; PULSE 69; O2SAT 98
--- NOTE | 2025-05-20 05:26 | HMH.EDGENADL ---
Discharge Plan Disposition Patient Disposition: Home, Self-Care Condition: Good Prescriptions Prescriptions: New epinephrine [EpiPen 2-Marlon] 0.3 mg/0.3 mL auto-injector 0.3 mg IM Q15M PRN (Reason: anaphylaxis) Qty: 2 0RF Rx Instructions: for 2 doses prednisone 20 mg tablet 40 mg PO DAILY 4 Days Qty: 8 0RF No Action multivitamin [Multiple Vitamins] Tablet 1 tab PO DAILY Konsyl (sugar) 3 gram/12 gram powder 1 tbsp PO DAILY Creon 36,000-114,000- 180,000 unit capsule,delayed release(DR/EC) 1 cap PO .With meals 30 Days Qty: 90 2RF Rx Instructions: administer with meals and/or snacks sodium,potassium,mag sulfates [Suprep Bowel Prep Kit] 17.5-3.13-1.6 gram recon soln See Rx Instructions PO .COMPLEX Qty: 354 0RF Rx Instructions: DILUTE; drink full amount early evening before AND next morning at least 4-5 hr before procedure; follow w 960 mL water PO estradiol 0.01 % (0.1 mg/gram) cream See Rx Instructions .ROUTE .COMPLEX Patient Comments: INSERT 1 GRAM VAGINALLY THREE TIMES A WEEK ON SATURDAY, SATURDAY AND SATURDAY Rx Instructions: place cream in vaginally once weekly hydrocodone-acetaminophen 5-325 mg tablet 1 tab PO Q8H PRN (Reason: Anorectal spasm) Qty: 10 0RF Rx Instructions: Please take 1 tablet p.o. every 8 hours anorectal pain/spasm after hemorrhoid banding epinephrine [EpiPen 2-Marlon] 0.3 mg/0.3 mL auto-injector 0.3 mg IM Q15M PRN (Reason: anaphylaxis) Qty: 1 0RF Rx Instructions: for 3 doses fexofenadine 30 mg tablet,disintegrating 180 mg PO BID Qty: 360 0RF famotidine 40 mg tablet 40 mg PO DAILY Qty: 30 0RF Referrals Follow up/Referrals: Provider,Referral, MD [Primary Care Provider, Medical] - See instructions Activity Restrictions/Add. Instructions Additional Instructions/Restrictions: You were evaluated in the ER and are believed to be appropriate for discharge at this time. 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 Take them as directed. Use the EpiPen if needed for severe allergic reaction including anaphylaxis or tongue swelling, difficulty breathing, etc. Make an appointment with your primary care doctor for reevaluation in 1 to 2 days. Please request a referral to an correctional officer sergeant for follow-up and allergy testing. Continue taking your antihistamine at home such as Nidia, Zyrtec, or Xyzal. Return to the ER with any new, worsening, or otherwise concerning symptoms including return of the symptoms that brought you in tonight, or if you have to use your EpiPen. Clinical Impressions Clinical Impression: Angioedema Print Language Print Language: Pashto Discharge ED Provider: Erika Daniel General Adult HPI General Chief complaint: Allergic Reaction Stated complaint: Allergic Reaction Time Seen by Provider: 05/20/25 04:13 Mode of Arrival: Ambulatory Source of Information: Patient Description of Symptoms (Recalled from ER Triage Doc. by RN): Pt states she woke up feeling like she could not breathe, her tongue was swelling. Pt has had 3 similiar episodes since January. She administered Epi pen into leg and took 25mg benadryl. Pt is unaware of what has caused her angioedema. History of Present Illness HPI narrative: 60-year-old female presents to the ER with concerns of tongue swelling. Patient reports 3 similar episodes since January. Patient woke up feeling like she could not breathe and had significant tongue swelling. She states she could not swallow or speak. She administered her home EpiPen approximately 30 minutes prior to arrival and took 25 mg of Benadryl. Patient states they have not yet isolated what causes this reaction but states occasionally before she gets that she will have hives on her hands or feet. She states this all started back in January after an exposure to poison hesham but they are not convinced that it is her specific trigger. She has not yet seen an correctional officer sergeant. She states she has been taking an mwot-lqf-mleckfv antihistamine daily for sinuses recently. She denies any chest pain or sensation of wheezing, no vomiting or diarrhea, no itching or hives. She did not have any lip swelling. She states her tongue has gone down and she is now able to speak, also states her tongue is down approximately 50% since administering EpiPen at home. Patient states for dinner last night they had hotdogs and beans, she has not been tested for alpha gal but does not recall any specific tick bites. No recent illness. No other complaints or concerns. On arrival to the ER she is independently ambulatory and speaking with patent airway. Patient reports no known new exposures, no new soaps, detergents, foods, drinks, or environmental exposures. Related Data Home Medications ?Medication ?Instructions ?Recorded ?Confirmed multivitamin (Multiple Vitamins 1 tab PO DAILY 06/30/24 09/07/24 tablet) psyllium husk (with sugar) 3 1 tbsp PO DAILY 06/30/24 09/07/24 gram/12 gram oral powder (Konsyl (sugar)) estradiol 0.01% (0.1 mg/gram) See Rx Instructions .Route .COMPLEX 09/04/24 09/07/24 vaginal cream Previous Rx's ?Medication ?Instructions ?Recorded gueass-kcrrxznr-evjzxah 1 cap PO .With meals 30 days #90 07/21/24 (pork)36,000-114,000-180k unit caps capsule,del rel (Creon) sodium,potassium,mag sulfates 17.5 See Rx Instructions PO .COMPLEX 08/27/24 gram-3.13 gram-1.6 gram oral soln #354 mL (Suprep Bowel Prep Kit) hydrocodone 5 mg-acetaminophen 325 1 tab PO Q8H PRN Anorectal spasm 09/07/24 mg tablet #10 tabs epinephrine 0.3 mg/0.3 mL 0.3 mg (0.3 mL) IM Q15M PRN 01/13/25 injection, auto-injector (EpiPen anaphylaxis #1 ea 2-Marlon) famotidine 40 mg tablet 40 mg PO DAILY #30 tabs 01/13/25 fexofenadine 30 mg disintegrating 180 mg (6 x 30 mg) PO BID #360 tabs 01/13/25 tablet epinephrine 0.3 mg/0.3 mL 0.3 mg (0.3 mL) IM Q15M PRN 05/20/25 injection, auto-injector (EpiPen anaphylaxis #2 ea 2-Marlon) prednisone 20 mg tablet 40 mg (2 x 20 mg) PO DAILY 4 days 05/20/25 #8 tabs Allergies Allergy/AdvReac Type Severity Reaction Status Date / Time No Known Allergies Allergy Verified 09/07/24 11:34 [facility] Disclaimer: The information contained in this section may have been updated after the patient was seen, as this information can be updated by other users. Medical History (Updated 05/20/25 @ 06:24 by Erika Daniel MD) Normal colonoscopy Breast implant status Surgical History (Updated 09/07/24 @ 13:56 by Guero Becker II, MD) Hx of tonsillectomy Hx of appendectomy Family History (Updated 09/04/24 @ 08:39 by Judith Lynch RN) Other Acute diverticulitis of intestine COPD (chronic obstructive pulmonary disease) History of colon resection Lymphoma Prostate cancer Social History (Updated 09/07/24 @ 12:00 by Christos Holland CRNA) Smoking Status: Never smoker alcohol intake: never substance use type: denies use current occupational status: employed Travel in the last 8 weeks?: Inside the [place] ROS Obtained: Yes Systems reviewed as appropriate & no additional complaints except as documented per HPI Physical Exam General General appearance: alert and anxious Comment: Anxious but nontoxic-appearing Head Head exam: atraumatic and normocephalic Eye Eye exam: Present PERRL and EOMI ENT ENT exam: Present mucous membranes moist Expanded ENT Exam Mouth exam: Present tongue swelling (Obvious angioedema with significant tongue swelling but I am able to visualize the posterior oropharynx beyond the tongue and there is no posterior oropharyngeal swelling appreciated) Throat exam: Absent tonsillar erythema, tonsillomegaly or muffled voice Neck Neck exam: Present normal inspection and full ROM Chest Chest inspection: Present symmetric chest wall rise Respiratory Respiratory exam: Present normal lung sounds bilaterally; Absent respiratory distress, wheezes or stridor Cardiovascular Cardiovascular exam: Present regular rate and normal rhythm Abdominal Exam Abdominal exam: Present soft; Absent distention, tenderness, guarding or rebound Extremities Exam Extremities exam: Present full ROM Neurological Exam Neurological exam: Present alert and oriented X3; Absent motor sensory deficit Psychiatric Psychiatric exam: Present normal affect and anxious (Appropriately anxious but able to be redirected) Skin Skin exam: Present warm and dry; Absent rash Medical Decision Making Medical Records Medical records reviewed: Yes I reviewed the patient's medical records. Screening: Per USPSTF and CDC recommendations, given the prevalence of disease in our region, it is our hospital?s policy to screen for HIV and viral Hepatitis for all patients aged 18 and over and those with ongoing risk factors. MR Comment: Patient was evaluated in this ER in January for allergic reaction. She did not have signs of anaphylaxis at that time and did not have tongue swelling. She received antihistamine, famotidine, steroids, but did not receive epinephrine in the ER. She was able to be discharged after ER evaluation and treatment. Zeferino Inquiry Pt receiving controlled substance: No Vital Signs: 05/20/25 04:30 05/20/25 04:33 05/20/25 05:00 Temperature 98.1 F Temperature Source Oral Pulse Rate 62 69 Pulse Rate [Left] 74 Respiratory Rate 16 Blood Pressure 131/85 131/75 Blood Pressure [Right Arm] 165/94 H Blood Pressure Mean 98 91 Blood Pressure Mean [Right Arm] 117 Blood Pressure Source [Right Arm] Automatic Cuff Blood Pressure Position [Right Arm] Sitting 02 Sat by Pulse Oximetry 97 100 98 Oxygen Delivery Method Room Air 05/20/25 05:30 Temperature Temperature Source Pulse Rate 81 Pulse Rate [Left] Respiratory Rate Blood Pressure 124/83 Blood Pressure [Right Arm] Blood Pressure Mean 94 Blood Pressure Mean [Right Arm] Blood Pressure Source [Right Arm] Blood Pressure Position [Right Arm] 02 Sat by Pulse Oximetry 98 Oxygen Delivery Method Orders (Tests/Meds): ED MEDICATIONS Generic Name Dose Route Start Last Admin Trade Name Freq PRN Reason Stop Dose Admin Sodium Chloride 8 ml 05/20/25 04:14 Sodium Chloride 0.9% 10ml Vial IV 06/19/25 04:13 NEEDED PRN dilute pepcid Discontinued Medications Generic Name Dose Route Start Last Admin Trade Name Freq PRN Reason Stop Dose Admin Diphenhydramine HCl 25 mg 05/20/25 04:14 05/20/25 04:18 Diphenhydramine 50mg/Ml Vial IV 05/20/25 04:15 25 mg ONCE ONE Administration Epinephrine HCl 0.3 mg 05/20/25 04:14 05/20/25 04:17 Epinephrine 1 Mg/Ml Ampul SUBCUT 05/20/25 04:15 0.3 mg ONCE ONE Administration Famotidine 20 mg 05/20/25 04:14 05/20/25 04:19 Famotidine 20mg/2ml Vial IV 05/20/25 04:15 20 mg ONCE ONE Administration Methylprednisolone Sodium Succinate 125 mg 05/20/25 04:14 05/20/25 04:18 Methylprednisolone Sod Succ 125mg Vial IV 05/20/25 04:15 125 mg ONCE ONE Administration Medical Decision Narrative: In summary, this 60-year-old female with history of previous allergic reaction but no known chronic medical conditions presents to the emergency department today with tongue swelling, difficulty speaking and swallowing that has started to improve since using her home EpiPen. I was immediately present at bedside when patient arrived. On initial evaluation patient is appropriately anxious but able to be redirected, hemodynamically stable, afebrile, no evidence of shock, patient has significant tongue swelling but I am able to visualize the posterior oropharynx beyond the tongue, no posterior oropharyngeal swelling, she and her state that her tongue has already decreased in size, speech has improved, and she is now able to breathe and swallow significantly easier but still not back to normal. She has no wheezing on exam, no stridor, tolerating secretions, normal abdominal exam, no urticaria or other rash, remainder of exam benign. Differential diagnosis includes but is not limited to angioedema, anaphylaxis, I considered medication reaction but patient does not take any daily medications that should cause this. She does not know what stimulus may have elicited this reaction. She has angioedema without other multisystem organ involvement and no shock. I do not believe she requires labs or imaging but immediately upon evaluating this patient I ordered an additional dose of IM epinephrine and patient also received Benadryl, famotidine, Solu-Medrol. Patient was placed into ED observation at 0430 for continued symptom monitoring, frequent reassessment, and hemodynamic monitoring. On reassessment her tongue continues to be swollen but is gradually decreasing in size. The left side is still more swollen than the right and she states it started on the left. She states her breathing has continued to get easier as has her swallowing. She states she just feels like her tongue is thick at this point. She continues to not have any other associated symptoms and hemodynamics are good with no evidence of shock. On reassessment patient's tongue has continued to improve. She has not had any rebound reaction. I believe she is appropriate for discharge at this time. She states she should be able to get into her primary care doctor today and I encouraged her to do so for reevaluation. I prescribed EpiPen to refill the prescription that she used at home. I also prescribed steroids for continued reaction management. She was instructed to continue home antihistamine as well. Patient was given instructions on symptomatic management, follow up instructions including to request correctional officer sergeant referral from her PCP, and return precautions for the emergency department. Patient indicated understanding and was discharged in stable condition. Total time in ED observation: 2 hours 45 minutes Critical Care Critical Care Time Critical Care Time: Yes Attestation: On 05/20/25, the high probability of a clinically significant, sudden or life threatening deterioration of the following system(s) required my full and direct attention, intervention and personal management. The time I documented below is in addition to time spent performing reported procedures but includes the following listed in this critical care notation. Total Time Total Critical Care Time: 35
[2025-05-20 05:30] VITALS: BP 124/83; PULSE 81; O2SAT 98
[2025-05-20 07:23] VITALS: BP 117/70; PULSE 82; RESP 18; TEMP 36.7; O2SAT 98
== END 2025-05-20 07:25 | disposition home or self-care (01) ==
PROVIDERS: Emergency Provider Emergency Medicine
DX: T78.3XXA Angioneurotic edema, initial encounter (principal)
CPT/HCPCS: 96374; 96375; 99284; J0169; J1200; J1308; J2919

== ENCOUNTER 2025-07-05 17:36 | Outpatient (CLI) | payer BC, SELFPAY ==
--- OUTSIDE RECORDS SUMMARY | 2025-05-28 08:03 | XMS_ITS | Continuity of Care Document ---
Author Organization [facility] Phone Care Team Providers Care Customer Account Technician Name Role Phone RANGEL RAMOS Primary Care [email or web address] RANGEL RAMOS Admitting Unavailable RANGEL RAMOS Primary Attending Unavailable RESULTS Patient: JUAN PABLO Ying Date of : 1965 10 LABORATORY RESULTS Information is not available LABORATORY NARRATIVE RESULTS Information is not available RADIOLOGY RESULTS ORDER 100: VENOUS DUPLEX US LWR RT EXT (LOINC: 56251-5) ORDER DATE: May 26, 2025 6:01:00 PM [facility] PERFORMING LAB: [address] [id number] Final Result Date: May 062024 7:52:49 [place] [address] Name: MAGDIEL ALMEIDA Exam Date: 05/26/2025 : 1965 Age 60 years Gender: F Physician: Rangel Ramos Facility: [facility] Facility HSV: Outpatient Exam: VENOUS DUPLEX US LWR RT EXT Duplex ultrasound of deep venous system right lower extremity History: Edema within the right lower extremity. FINDINGS: Evaluation performed from groin to proximal calf. Normal compression and augmentation. No intraluminal filling defect or deep venous thrombosis. Impression: No evidence for deep venous thrombosis. Electronically signed by: Rito Castillo MD 05/26/2025 03:52 PM EDT Dictated By: Rito Castillo Transcribed By: Transcribed On: 05/26/2025 3:52 PM Electronically signed by: Rito Castillo 05/26/2025 Thank you for referring MAGDIEL ALMEIDA to [facility]. Legally authenticated by BETSEY LENZ 2025-05-26 15:52:49 PATHOLOGY NARRATIVE RESULTS Information is not available MICROBIOLOGY RESULTS No Micro Labs/Results Exist for Patient BLOOD ADMIN RESULTS Information is not available MEDICATIONS HOME MEDICATIONS Status RXNORM NDC Medication Dose Route Frequency Dates Comments Reported By Updated By Drug Treatment Unknown DISCHARGE MEDICATIONS Status RXNORM NDC Medication Dose Route Frequency Dates Dis pense Data Comments Physician Updated By No Discharge Medication Info rmation Available INPATIENT MEDICATIONS Status RXNORM NDC Medication Dose Route Frequency Rat e Quantity Dates Indication Dispense Data Comments Physician Updated By No Inpatient Medication Info rmation Available SOCIAL HISTORY SOCIAL HISTORY - Smoking Status SNOMED-CT Social History Element Description Effective Dates Offered Cessation Comment Updated By [id number] Smoking Status Unknown If Ever Smoked SOCIAL HISTORY - Gender Sex: Female SOCIAL HISTORY - Status : status i nformation is not available Intention in Next Year: intention information is not available SOCIAL HISTORY - Assessments Code System Description Status Date Value of Assessment Updated By Comment Assessment Information is no t available SOCIAL HISTORY - [place] Affiliation [place] information is not av ailable SOCIAL HISTORY - Legal Sex Legal Sex information is not available SOCIAL HISTORY - Sexual Behavior Sexual Orientation Gender Identity SNOMED-CT Description SNO MED -CT Description Activity Level No of Partners Partner Type UpdatedBy Information is not available SOCIAL HISTORY - Occupation Occupation information is no t available HEALTH CONCERNS Problems Concern Status Health Concern problem infor mation not available. Smoking Status Status Years Used Consumed packs p er day Health Concern smoking histo ry information not available. Family History Concern Status Health Concern family histor y information not available. ENCOUNTERS ENCOUNTER INFORMATION Reason for Visit STAT ADD ON APPROVE BY RUSTY Admission May 26, 2025 5:30:00 PM [place] [id number] [facility] [id number] Discharge May 26, 2025 5:30:00 PM [facility] DISCHARGED TO HOME OR SELF CARE ENCOUNTER DIAGNOSES Notes information is not heath ilable. Code System Diagnosis Onset Date Diagnosis information is not available. ABSTRACT DIAGNOSES Code System Diagnosis Updated By Abatement Date R60.0 ICD10 LOCALIZED EDEMA [id number] on O ct2024 1:02:38 PM [facility] R60.0 ICD10 LOCALIZED EDEMA [id number] on O ct2024 1:02:39 PM UTC CARE TEAM Care Customer Account Technician Role RANGEL RAMOS Primary Care RANGEL RAMOS Admitting RANGEL RAMOS Primary Attending CARE TEAM CARE boiler tender Role on Team Location Telecom Status Start Date End Jamey e Updated By RICHARD PEREZ Attending normal May 26, 2025 4:00:00 AM [place] May 26, 2025 5:30:00 PM UTC [id number] on May 26, 2025 5:46:23 PM [place] RICHARD PEREZ Admitting normal May 26, 2025 4:00:00 AM [place] May 26, 2025 5:30:00 PM [place] [id number] on May 26, 2025 5:46:23 PM [place] RICHARD PEREZ PCP normal May 26, 2025 4:32:40 PM [place] May 26, 2025 5:30:00 PM [place] [id number] on May 26, 2025 5:46:23 PM [place] MAC PEREZ Attending normal May 26, 2025 4:32:40 PM [place] May 26, 2025 4:00:00 AM [place] [id number] on May 26, 2025 5:46:23 PM [place] MAC PEREZ Admitting normal May 26, 2025 4:32:40 PM [place] May 26, 2025 4:00:00 AM [place] [id number] on May 26, 2025 5:46:23 PM [place]
--- OUTSIDE RECORDS SUMMARY | 2025-06-10 21:01 | XMS_ITS | Continuity of Care Document ---
Author Organization [facility] Phone Care Team Providers Care Regulatory Compliance Engineer Name Role Phone MIRIAM CLIFTON Unavailable WILLOW RAMOS Primary Care [email or web address] MIRIAM CLIFTON Primary Attending MIRIAM CLIFTON Admitting RESULTS Patient: JUAN PABLO Ying Date of : 1965 8 LABORATORY RESULTS ORDER 200: IGE (LOINC: ) ORDER DATE: June 05, 2025 5:32:00 PM UTC Specimen Source: SERUM Specimen Type: Serum specime n PERFORMING LAB: [facility] [address] [place] [address] [phone] Result Comment: June 10, 2025 8:10:00 PM UTC Performed at: [facility] Result Comment: June 10, 2025 8:10:00 PM UTC [address] [place] [phone] Result Comment: June 10, 2025 8:10:00 PM UTC Engraver Block: Evelina Alvarez MD, Phone: [phone] Result Comment: June 10, 2025 8:10:00 PM UTC Final Result Date: June 10, 2025 6:33:00 PM UTC (TECH: LAB) LOINC TEST FLAG [place] [address]-8 IgE [Units/volume] in Serum or Plasma N 20 IU/mL 6-495 June 10, 2025 6:33:00 PM UTC (TECH: LAB) ORDER 300: C-REACTIVE PROTEI N CRP (LOINC: 1987-12) ORDER DATE: June 05, 2025 5:32:00 PM UTC Specimen Source: PLASMA Specimen Type: Plasma specim en PERFORMING LAB: [address] [id number] Result Comment: Final Result Date: June 05, 2025 7:09:00 PM UTC (TECH: JNJ) LOINC TEST FLAG RESULT REFERENCE RANGE UPDA PRACHI BY 1988-5 C reactive protein [Mass/volume] in Serum or Plasma N <0.2 mg/dL 0.05 mg/dL - 0.300 mg/dL June 05, 2025 7:09:00 PM UTC (TECH: JNJ) ORDER 400: C1 ESTERASE INHIB ITOR SERUM (LOINC: 4477-6) ORDER DATE: June 05, 2025 5:32:00 PM UTC Specimen Source: SERUM Specimen Type: Serum specime n PERFORMING LAB: [address] [id number] Result Comment: June 09, 2025 6:10:00 PM UTC Performed at: [facility] Result Comment: June 09, 2025 6:10:00 PM UTC [facility] [place], [place] [id number] Result Comment: June 09, 2025 6:10:00 PM UTC Engraver Block: Evelina Alvarez MD, Phone: [phone] Result Comment: June 09, 2025 6:10:00 PM UTC Final Result Date: June 09, 2025 6:33:00 PM UTC (TECH: LAB) LOINC TEST FLAG RESULT REFERENCE [place] BY 4477-6 Complement C1 esterase inhibitor [Mass/volume] in Serum or Plasma N 28 mg/dL 21-39 June 09, 2025 6:33:00 PM UTC (TECH: LAB) ORDER 500: COMPLEMENT C4 (LO INC: 4498-2) ORDER DATE: June 05, 2025 5:32:00 PM UTC Specimen Source: SERUM Specimen Type: Serum specime n PERFORMING LAB: [address] [id number] Result Comment: June 06, 2025 2:09:00 PM UTC Performed at: [facility] Result Comment: June 06, 2025 2:09:00 PM UTC [address] [place], [place] [id number] Result Comment: June 06, 2025 2:09:00 PM UTC Engraver Block: Chavo Grier PhD, Phone: [phone] Result Comment: June 06, 2025 2:09:00 PM UTC Final Result Date: June 06, 2025 6:33:00 PM UTC (TECH: LAB) LOINC TEST FLAG RESULT REFERENCE RANGE UPDA PRACHI BY 4498-2 Complement C4 [Mass/volume] in Serum or Plasma N 17 mg/dL 12-38 June 06, 2025 6:33:00 PM UTC (TECH: LAB) ORDER 600: THYROID STIMULATI NG HORMONE (LOINC: 3016-3) ORDER DATE: June 05, 2025 5:32:00 PM UTC Specimen Source: PLASMA Specimen Type: Plasma specim en PERFORMING LAB: [address] [id number] Result Comment: Final Result Date: June 05, 2025 7:09:00 PM UTC (TECH: JNJ) LOINC TEST FLAG RESULT REFERENCE RANGE UPDA PRACHI BY 3016-3 Thyrotropin [Units/volume] in Serum or Plasma N 1.52 mIU/L 0.36 mIU/L - 3.74 mIU/L June 05, 2025 7:09:00 PM UTC (TECH: JNJ) ORDER 700: T3 TOTAL (LOINC: 3053-6) ORDER DATE: June 05, 2025 5:32:00 PM UTC Specimen Source: SERUM Specimen Type: Serum specime n PERFORMING LAB: [address] [id number] Result Comment: June 06, 2025 1:09:00 PM UTC Performed at: [facility] Result Comment: June 06, 2025 1:09:00 PM UTC [address] [place] [phone] Result Comment: June 06, 2025 1:09:00 PM UTC Engraver Block: Chavo Grier PhD, Phone: [phone] Result Comment: June 06, 2025 1:09:00 PM UTC Final Result Date: June 06, 2025 6:33:00 PM UTC (TECH: LAB) LOINC TEST FLAG RESULT REFERENCE RANGE UPDA PRACHI BY 3053-6 Triiodothyronine (T3 ) [Mass/volume] in Serum or Plasma N 98 ng/dL 71-180 June 06, 2025 6:33:00 PM UTC (TECH: LAB) ORDER 800: T4 TOTAL (LOINC: 3025-4) ORDER DATE: June 05, 2025 5:32:00 PM UTC Specimen Source: PLASMA Specimen Type: Plasma specim en PERFORMING LAB: [address] [id number] Result Comment: Final Result Date: June 05, 2025 7:09:00 PM UTC (TECH: JNJ) LOINC TEST FLAG RESULT REFERENCE RANGE UPDA PRACHI BY 3025-4 Thyroxine (T4) [Mass/volume] in Blood N 6.5 MCG/DL 4.5 MCG/DL - 12.1 MCG/DL June 05, 2025 7:09:00 PM UTC (TECH: JNJ) ORDER 900: ANTI-THYROGLOBULI N AB (LOINC: 8098-6) ORDER DATE: June 05, 2025 5:32:00 PM UTC Specimen Source: SERUM Specimen Type: Serum specime n PERFORMING LAB: [address] [id number] Result Comment: June 07, 2025 10:09:00 PM UTC Thyroglobulin Antibody measured by Mily Kwame Result Comment: June 07, 2025 10:09:00 PM UTC Methodology Result Comment: June 07, 2025 10:09:00 PM UTC . Result Comment: June 07, 2025 10:09:00 PM UTC It should be noted that the presence of thyroglobulin Result Comment: June 07, 2025 10:09:00 PM UTC antibodies may not be pathogenic nor diagnostic, Result Comment: June 07, 2025 10:09:00 PM UTC especially at very low levels. The assay claim benefit specialist has Result Comment: June 07, 2025 10:09:00 PM UTC found that four percent of individuals without evidence of Result Comment: June 07, 2025 10:09:00 PM UTC thyroid disease or autoimmunity will have positive TgAb Result Comment: June 07, 2025 10:09:00 PM UTC levels up to 4 IU/mL. Result Comment: June 07, 2025 10:09:00 PM UTC Performed at: [facility] Result Comment: June 07, 2025 10:09:00 PM UTC [address] [place], [place] [phone] Result Comment: June 07, 2025 10:09:00 PM UTC Engraver Block: Chavo Grier PhD, Phone: [phone] Result Comment: June 07, 2025 10:09:00 PM UTC Final Result Date: June 05, 2025 5:33:00 PM UTC (TECH: LAB) LOINC TEST FLAG RESULT REFERENCE RANGE UPDA PRACHI BY 8098-6 Thyroglobulin Ab [Units/volume] in Serum or Plasma N <1.0 IU/mL 0.0-0.9 June 05, 2025 5:33:00 PM UTC (TECH: LAB) ORDER 1000: MONISHA WOODSON IGE (LOINC: 03651-2) ORDER DATE: June 05, 2025 5:32:00 PM UTC Specimen Source: SERUM Specimen Type: Serum specime n PERFORMING LAB: [address] [id number] Result Comment: June 11, 2025 12:09:00 AM UTC CLASS INTERPRETATION: <0.35 kU/L=0, Below Detection; Result Comment: June 11, 2025 12:09:00 AM UTC 0.35-0.69 kU/L= 1, Low Positive; 0.70-3.49 kU/L= 2, Result Comment: June 11, 2025 12:09:00 AM UTC Moderate Positive; 3.50-17.49 kU/L= 3, Positive; Result Comment: June 11, 2025 12:09:00 AM UTC 17.50-49.99 kU/L= 4, Strong Positive; >49.99 kU/L= 5, Very Result Comment: June 11, 2025 12:09:00 AM UTC Strong Positive Result Comment: June 11, 2025 12:09:00 AM UTC *This test was developed and its performance Result Comment: June 11, 2025 12:09:00 AM UTC characteristics determined by [employer]. It has not Result Comment: June 11, 2025 12:09:00 AM UTC been cleared or approved by the U.S. Food and Drug Result Comment: June 11, 2025 12:09:00 AM UTC Administration. Result Comment: June 11, 2025 12:09:00 AM UTC FLAG Interpretation: A = Abnormal, H = High, L = Low Result Comment: June 11, 2025 12:09:00 AM UTC Performed at: [facility] Result Comment: June 11, 2025 12:09:00 AM UTC [address] [place] [address], [facility] [address], [place], [place] [id number] Result Comment: June 11, 2025 12:09:00 AM UTC Engraver Block: DORA [facility], Phone: [phone] Result Comment: June 11, 2025 12:09:00 AM UTC Final Result Date: June 05, 2025 5:33:00 PM UTC (TECH: LAB) LOINC TEST FLAG [place] [address]-2 Jalepeno Pepper IgE Ab [Units/volume] in Serum N <0.35 kU/L <0.35 June 05, 2025 5:33:00 PM UTC (TECH: LAB) 6934-4 RAST class [Presence] in Serum N 0 June 05, 2025 5:33:00 PM UTC (TECH: LAB) ORDER 1100: ANTINUCLEAR ANTI BODIES IFA (LOINC: 67965-8) ORDER DATE: June 05, 2025 5:32:00 PM UTC Specimen Source: SERUM Specimen Type: Serum specime n PERFORMING LAB: [address] [id number] Result Comment: June 07, 2025 6:09:00 PM UTC Negative <1:80 Result Comment: June 07, 2025 6:09:00 PM UTC Borderline 1:80 Result Comment: June 07, 2025 6:09:00 PM UTC Positive >1:80 Result Comment: June 07, 2025 6:09:00 PM UTC ICAP nomenclature: AC-0 Result Comment: June 07, 2025 6:09:00 PM UTC For more information about Hep-2 cell patterns use Result Comment: June 07, 2025 6:09:00 PM UTC ANApatterns.org, the official website for the Result Comment: June 07, 2025 6:09:00 PM UTC International Consensus on Antinuclear Antibody (ADOLFO) Result Comment: June 07, 2025 6:09:00 PM UTC Patterns (ICAP). Result Comment: June 07, 2025 6:09:00 PM UTC Performed at: [facility] Result Comment: June 07, 2025 6:09:00 PM UTC [address] [place], [place] [phone] Result Comment: June 07, 2025 6:09:00 PM UTC Engraver Block: Chavo Grier PhD, Phone: [phone] Result Comment: June 07, 2025 6:09:00 PM UTC Final Result Date: June 05, 2025 5:33:00 PM UTC (TECH: LAB) LOINC TEST FLAG [place] [address]-0 Nuclear Ab [Presence ] in Serum by Immunofluorescence N Negative June 05, 2025 5:33:00 PM UTC (TECH: LAB) ORDER 1200: THYROID PEROXIDA SE AB (LOINC: 8099-4) ORDER DATE: June 06, 2025 3:23:00 AM UTC Specimen Source: SERUM Specimen Type: Serum specime n PERFORMING LAB: [address] [id number] Result Comment: June 07, 2025 6:09:00 PM UTC Performed at: [facility] Result Comment: June 07, 2025 6:09:00 PM UTC [address] [place] [phone] Result Comment: June 07, 2025 6:09:00 PM UTC Engraver Block: Chavo Grier PhD, Phone: [phone] Result Comment: June 07, 2025 6:09:00 PM UTC Final Result Date: June 07, 2025 6:33:00 PM UTC (TECH: LAB) LOINC TEST FLAG RESULT REFERENCE R[place] BY 8099-4 Thyroperoxidase Ab [Units/volume] in Serum or Plasma N 16 IU/mL 0-34 June 07, 2025 6:33:00 PM UTC (TECH: LAB) ORDER 1300: C1 ESTERASE INHI BITOR FUNC (LOINC: 12605-8) ORDER DATE: June 06, 2025 3:31:00 AM UTC Specimen Source: SERUM Specimen Type: Serum specime n PERFORMING LAB: [address] [id number] Result Comment: June 10, 2025 1:09:00 AM UTC Abnormal <41 Result Comment: June 10, 2025 1:09:00 AM UTC Equivocal 41 - 67 Result Comment: June 10, 2025 1:09:00 AM UTC Normal >67 Result Comment: June 10, 2025 1:09:00 AM UTC Performed at: [facility] Result Comment: June 10, 2025 1:09:00 AM UTC [address] [place], [place] [phone] Result Comment: June 10, 2025 1:09:00 AM UTC Engraver Block: Evelina Alvarez MD, Phone: [phone] Result Comment: June 10, 2025 1:09:00 AM UTC Final Result Date: June 09, 2025 6:33:00 PM UTC (TECH: LAB) LOINC TEST FLAG [place] [address]-4 Complement C1 esterase inhibitor.functional/ Complement C1 esterase inhibitor.total in Serum or Plasma N >105 %mean normal June 09 6:33:00 PM UT (TECH: LAB) LABORATORY NARRATIVE RESULTS Information is not available RADIOLOGY RESULTS Information is not available PATHOLOGY NARRATIVE RESULTS Information is not available [...] Effective Dates Offered Cessation Comment Updated By [id number] Smoking Status Unknown If Ever Smoked SOCIAL HISTORY - Gender Sex: Female SOCIAL HISTORY - Status : status i nformation is not available Intention in Next Year: intention information is not available SOCIAL HISTORY - Assessments Code System Description Status Date Value of Assessment Updated By Comment Assessment Information is no t available SOCIAL HISTORY - [place] Affiliation [place] information is not av ailable SOCIAL HISTORY [...] available. ENCOUNTERS ENCOUNTER INFORMATION Reason for Visit LAB WORK Admission June 05, 2025 5:12:00 PM [place] [id number] [facility] [id number] Discharge June 05, 2025 5:12:00 PM [facility] DISCHARGED TO HOME OR SELF CARE ENCOUNTER DIAGNOSES Notes information is not heath ilable. Code System Diagnosis Onset Date Diagnosis information is not available. ABSTRACT DIAGNOSES Code System Diagnosis Updated By Abatement Date T78.3XXA ICD10 ANGIONEUROTIC ED GET, INITIAL ENCOUNTER [id number] on June 08, 2025 7:37:33 AM [facility] L50.8 ICD10 OTHER URTICARIA [id number] on N ov2024 7:37:33 AM [facility] T78.3XXA ICD10 ANGIONEUROTIC ED GET, INITIAL ENCOUNTER [id number] on June 08, 2025 7:37:33 AM [facility] L50.8 ICD10 OTHER URTICARIA [id number] on N ov2024 7:37:33 AM [facility] CARE TEAM Care Regulatory Compliance Engineer Role MIRIAM CLIFTON Referring WILLOW RAMOS Primary Care MIRIAM CLIFTON Primary Attending MIRIAM CLIFTON Admitting CARE TEAM CARE cartridge assembler Role on Team Location Telecom Status Start Date End Jamey e Updated By RICHARD PEREZ PCP normal June 05, 2025 4:00:00 AM [facility] June 05, 2025 5:12:00 PM [facility] [id number] on June 05, 2025 5:13:21 PM [facility] ELODIA Gamino Referring normal June 05, 2025 4:00:00 AM [facility] June 05, 2025 5:12:00 PM [facility] [id number] on June 05, 2025 5:13:21 PM [facility] ELODIA Gamino Attending normal June 05, 2025 4:00:00 AM [facility] June 05, 2025 5:12:00 PM [facility] [id number] on June 05, 2025 5:13:21 PM [facility] ELODIA Gamino Admitting normal June 05, 2025 4:00:00 AM [facility] June 05, 2025 5:12:00 PM [facility] [id number] on June 05, 2025 5:13:21 PM [facility]
--- OUTSIDE RECORDS SUMMARY | 2025-07-05 17:41 | XMS_ITS | Clinical Summary ---
Author Organization [facility] Address [address] [place] [id number] Phone [email or web address] Care Team Providers Care Story Analyst Name Role Phone Provider, No Primary Care [...] Immunization Administration Dates Next Due Covid-19 (Moderna Fleming, 12yrs+) ([id number]) 2020,10/04/2020 Social History Tobacco Use [...] Health Maintenance Due Date Last Done Comments CT Colonography 1967 Cervical Cancer Screening Combo 1965 Colonoscopy 1967 Colorectal Cancer Screening Combo 1965 DNA Cologuard 1967 Dental Cleaning/Exam 1967 FIT or FOBT Test 1967 HIV Screening 1965 HPV only / HPV + Pap 1967 Hepatitis C Screening 1967 Pap only testing 1967 Sigmoidoscopy 1967 Annual Preventive Exam 1985 Hep B Infection Screening - Triple Screen 1985 Hepatitis B Immunization (1 of 3 - 19+ 3-dose series) 1986 Tetanus Diphtheria and Pertussis Immunization (1 - Tdap) 1986 Pneumococcal: 50+ Years (1 of 1 - PCV) 2017 Covid-19 Immunization ( - season) 2025 03/10/2022, 06/16/2021, 11/01/2020, Additional history exists Influenza Immunization (#1) 2025 06/02/2022, 1 Breast Cancer Screening 09/30/2026 09/30/19 25, 08/19/2023, 08/17/2022, Additional history exists Zoster Immunization Completed 08/02/2022, 2 HIB Immunization Aged Out No longer e [...] OPT OUT NO COPAY NB Care Teams Story Analyst Relationship Specialty Start Date End Date Provider, [place] [address] PCP - General Technical Professional 01/30/21
--- OUTSIDE RECORDS SUMMARY | 2025-07-05 17:41 | XMS_ITS | Clinical Summary ---
[facility] Organization [facility] Address [address] [place] [address] Care Team Providers Care Bridge Inspector Name Role Phone Rangel Mercedes MD Primary Care Provider [phone] Family History Medical History Relation Name Comments Breast cancer Neg Hx Ovarian cancer Neg Hx Social History Tobacco Use Types Packs/Day Years Used Date Smoking Tobacco: Never Assessed Comments No Sex and Gender Information Value Date Recorded Sex Assigned at Not on file Legal Sex Female 11:51 AM EST Gender Identity Not on file Sexual Orientation Not on file Plan of Treatment Health Maintenance Due Date Last Done Comments Annual Gynecologic Pelvic an d Breast Exam 1965 TDAP/TD VACCINES (1 - Tdap) 1986 COLOGUARD 01/30/2012 COLON CANCER SCREENING 5 YEA R SIGMOIDOSCOPY 01/30/2012 COLONOSCOPY 01/30/2012 COLORECTAL CANCER SCREENING 01/30/2012 CT COLONOGRAPHY 01/30/2012 FECAL OCCULT BLOOD TEST 01/30/2012 FIT Testing (1 year) 01/30/2012 Pneumococcal Vaccine 50+ (1 of 1 - PCV) 2017 ANNUAL PHYSICAL 09/29/2024 HEPATITIS C SCREENING 09/29/2024 INFLUENZA VACCINE 03/05/2025 07/13/2024, , 05/21/2020 MAMMOGRAM 09/30/2026 09/30/2024, 08/05, 08/17/2022, Additional history exists ZOSTER VACCINE Completed 08/02/2022, 06/02/2022 Procedures Procedure Name Priority Date/Time Associated Diagnosis Comments MAMMO SCREENING DIGITAL TOMOSYNTHESIS BILATERAL W CAD Routine 09/30/2024 11:06 AM EST Visit for screening mammogram from Last 3 Months or Most Recently Relevant to Health Maintenance Results * Mammo Screening Digital Tomosynthesis Bilateral With CAD (09/30/2024 11:06 AM EST) Anatomical Region Laterality Modality Breast N/A Mammography 10/02/2024 12:4 6 PM EST Impressions 10/02/2024 12:47 PM EST Benign screening mammogram. RECOMMENDATION: Continue annual screening mammography. BI-RADS CATEGORY 2, BENIGN. CAD was utilized. The standard false-negative rate of mammography is between 10% and 25%. Complex patterns or increased breast density will markedly elevate the false-negative rate of mammography. A letter, in lay terminology, with the results of this exam will be mailed to the patient. 10/02/2024 12:[address] Dmitry Bowers MD on Narrative 10/02/2024 12:47 PM EST DIGITAL SCREENING MAMMOGRAM WITH TOMOSYNTHESIS HISTORY: Screening Mammography. Low dose full field digital breast tomosynthesis imaging was performed with 2D and 3D acquisitions consisting of bilateral CC and MLO views. Examination is compared to prior examination dating back to 09/24/2015. Examination is read in conjunction with computer aided detection. FINDINGS: The breast tissue is heterogeneously dense, which may obscure small masses. No suspicious masses, microcalcifications or areas of architectural distortion are identified. Bilateral retropectoral silicone implants are stable. Neeru Rivera MD IMG MAMMOGRAPHY ORDERABLES Fi nal Result from Last 3 Months or Most Recently Relevant to Health Maintenance Insurance [facility] PPO Care Teams Bridge Inspector Relationship Specialty Start Date End Date Rangel Mercedes MD PCP - General 09/23/15
[2025-07-09 20:12] LABS: O215-IgE Alpha-Gal < 0.10 kU/L (Class 0)
== END 2025-07-05 23:59 | disposition home or self-care (01) ==
LOC: LAB 17:40
PROVIDERS: Visit Provider Nurse Practitioner Family
DX: Z91.018 Allergy to other foods (principal)
CPT/HCPCS: 36415; 86003; 86008